=== PATIENT | female | born 1995 | race Caucasian/White ===

== ENCOUNTER 2019-11-19 06:40 | Emergency (ER) | payer MEDICAID, OTHER ==
[2019-11-19 06:49] VITALS: BP 148/94
[2019-11-19] MEDS ORDERED: LORazepam 1 MG TAB PO STA (08:54)
== END 2019-11-19 11:55 | disposition home or self-care (01) ==
LOC: M ED 06:40
DX: F19.10 Other psychoactive substance abuse, uncomplicated (principal); Z63.0 Problems in relationship with spouse or partner; F17.210 Nicotine dependence, cigarettes, uncomplicated